=== PATIENT | male | born 1935 | race Asian ===

== ENCOUNTER 2019-01-07 16:53 | Emergency (ER) | payer OTHER ==
[~2019-01-07] VITALS: Ht 177.8 cm; Wt 72.6 kg
[2019-01-07 17:07] VITALS: BP_SYST 117
--- NOTE | 2019-01-07 17:18 | NUR ---
Patient to ER bed 6 to gown for evaluation. Side rails up. Report given to Tera PETERSON.
--- NOTE | 2019-01-07 17:20 | NUR ---
Patient is awake, alert, and oriented x4. Patient's daughter and son in law are at bedside. Patient states he has had increasing weakness with multiple falls over the last 6 weeks. Patient reports his legs no longer have the strength for him to stand. Patient presents with redness and "pinching" pain to left wrist and thumb.
--- NOTE | 2019-01-07 17:25 | NUR ---
ER at bedside examining patient.
[2019-01-07 18:04] LABS: BASOPHILS % (AUTO) 0.4 % (0.0-2.0); EOSINOPHILS # (AUTO) 0.3 K/uL (0.0-0.4); EOSINOPHILS % (AUTO) 5.2 % (0.0-4.0); HEMATOCRIT 33.2 % (36-54); HEMOGLOBIN 11.1 g/dL (14.0-18.0); LYMPHOCYTES # (AUTO) 0.8 K/uL (1.0-5.5); LYMPHOCYTES % (AUTO) 14.7 % (20.5-51.5); MEAN CORPUSCULAR HEMOGLOBIN 32 pg (27-31); MEAN CORPUSCULAR HGB CONC 33 % (32-36); MEAN CORPUSCULAR VOLUME 94 fL (79.0-98.0); MONOCYTES # (AUTO) 0.6 K/uL (0.0-1.0); MONOCYTES % (AUTO) 10.3 % (1.7-9.3); NEUTROPHILS # (AUTO) 3.9 K/uL (1.8-7.7); NEUTROPHILS % (AUTO) 69.4 % (40.0-70.0); PLATELET COUNT (AUTO) 322 K/uL (130-430); RED BLOOD CELL COUNT(AUTO) 3.52 MIL/uL (4.2-6.2); RED CELL DISTRIBUTION WIDTH 14.4 % (9.0-15.0); WHITE BLOOD COUNT (AUTO) 5.6 K/uL (4.8-10.8)
--- NOTE | 2019-01-07 18:08 | NUR ---
Patient transported to radiology via gurney, accompanied by emissions repair technician.
[2019-01-07] MEDS ORDERED: NACL 0.9% 1,000 ML IV ONE (18:15)
[2019-01-07 18:21] LABS: PROTHROMBIN TIME 10.2 SECS (9.5-12.5)
--- NOTE | 2019-01-07 18:21 | NUR ---
Returned from radiology, back to [facility].
[2019-01-07 18:30] LABS: ANION GAP 6 (5-15); CALCIUM 8.6 mg/dL (8.4-11.0); CHLORIDE 103 mmol/L (98-107); CREATININE 1.44 mg/dL (0.55-1.30); GLUCOSE 96 mg/dL (70-99); SODIUM SERUM 134 mmol/L (136-145); UREA NITROGEN, BLOOD 32 mg/dL (8-21)
[2019-01-07 18:36] LABS: ALANINE AMINOTRANSFERASE 97 U/L (12-78); ALBUMIN 2.4 g/dL (3.4-4.8); ASPARTATE AMINOTRANSFERASE 91 U/L (10-37); TOTAL BILIRUBIN 0.5 mg/dL (0.0-1.0)
[2019-01-07 18:50] LABS: BILIRUBIN,URINE NEGATIVE (NEGATIVE); BLOOD, URINE 1+ (NEGATIVE); CLARITY/URINE CLEAR (CLEAR); COLOR,URINE YELLOW (YELLOW); GLUCOSE,URINE NEGATIVE (NEGATIVE); KETONES,URINE NEGATIVE (NEGATIVE); LEUKOCYTE ESTERASE ,URINE NEGATIVE (NEGATIVE); NITRITE, URINE NEGATIVE (NEGATIVE); PH,URINE 5.5 (5.0-8.0); PROTEIN URINE TRACE (NEGATIVE)
--- NOTE | 2019-01-07 19:12 | NUR ---
Report given to KRISTEN Campos for continuation of care.
--- NOTE | 2019-01-07 19:15 | NUR ---
Pt AAOx4, denies c/o pain or discomfort, no needs verbalized at this time. VSS, NAD. Family members at bedside.
[2019-01-07 19:17] LABS: BACTERIA,URINE RARE /HPF (None Seen); WBC,URINE 0-3 /HPF (0-3)
[2019-01-07 19:18] LABS: MUCUS,URINE 1+ /LPF (None Seen)
[2019-01-07] MEDS ORDERED: DIPHENHYDRAMINE HCL 25 MG CAPSULE PO ONE (20:15)
[2019-01-07] MEDS ORDERED: DIPHENHYDRAMINE HCL 25 MG CAPSULE ONE (20:29)
--- NOTE | 2019-01-07 20:30 | NUR ---
Pt denies c/o pain or discomfort, no needs verbalized. VSS, NAD. Family members at bedside.
[2019-01-07 22:00] VITALS: BP_SYST 133
--- NOTE | 2019-01-07 22:00 | NUR ---
Patient to be transferred to [facility]. Is being transferred due to higher level of care. Receiving facility has accepting physician and available space. ER physician has signed transfer form. Patient or responsible constitution party has agreed to transfer and signed form. Patient belongings inventoried and will be sent with patient. Copy of nursing notes, lab reports, EKG, Physicians Orders and X-rays to be sent with patient. Report called to KRISTEN Burnham at receiving facility. Receiving physician is Dr. Amaya. Pt leaves in c/o BLS ambulance in stable condition.
== END 2019-01-07 22:00 | disposition short-term general hospital (02) ==
LOC: SED 16:53
DX: S06.5X0A Traumatic subdural hemorrhage without loss of consciousness, initial encounter (principal); R53.1 Weakness; J44.9 Chronic obstructive pulmonary disease, unspecified; I10 Essential (primary) hypertension; Z88.0 Allergy status to penicillin; W19.XXXA Unspecified fall, initial encounter; Y93.89 Activity, other specified; Y92.89 Other specified places as the place of occurrence of the external cause; Y99.8 Other external cause status
CPT/HCPCS: 36415; 70450; 71045; 73110; 73130; 80053; 81000; 83605; 84484; 85025; 85610; 85730; 87040; 87086; 93005; 99291; J7030; Q0163